=== PATIENT | female | born 1970 | race Caucasian/White ===

== ENCOUNTER 2018-07-31 02:05 | Emergency (ER) | payer MEDICAID ==
[~2018-07-31] VITALS: Ht 167.6 cm; Wt 81.6 kg
[~2018-07-31 02:05] MED LIST: LISI2.5T12 PO
[2018-07-31 02:10] VITALS: BP 174/107
--- NOTE | 2018-07-31 02:10 | NUR ---
48/F CAME IN W C/O HEADACHE AND PALIPITATIONS STARTED TODAY. PT REPORTS SHE HAS NOT BEEN TAKING LISINOPRIL X 8 DAYS D/T NO REFILLS. HEART SOUNDS REGULAR. 91HR ON BEDSIDE MONITOR, NO ECTOPY. PMH: HTN
--- NOTE | 2018-07-31 02:10 | NUR ---
TO BED # 12 AMBULATORY, REPORT GIVEN TO LUCY CHEN
[2018-07-31] MEDS ORDERED: LORazepam 0.5 MG TAB PO ONE (02:50)
--- NOTE | 2018-07-31 03:23 | NUR ---
ORDER PER AMBIKA GREGORY TO GIVE LISINOPRIL 40MG PO, MED GIVEN TO PT. PT DONNELL WELL
[2018-07-31 03:24] LABS: BARBITURATE, URINE NEG. ng/ml (NEG <=200); BENZODIAZEPINE, URINE NEG. ng/mL (NEG <=200); CANNABINOID, URINE NEG. ng/mL (NEG <=50); COCAINE, URINE NEG. ng/mL (NEG <=300); OPIATE, URINE NEG. ng/mL (NEG <=2000); PHENCYCLIDINE SCREEN,URINE NEG. ng/mL (NEG <=25)
[2018-07-31] MEDS ORDERED: LISINOPRIL 10 MG TAB ONE ×2 (03:26→03:28)
[2018-07-31 03:34] LABS: APPEARANCE,URINE CLEAR (CLEAR); BILIRUBIN,URINE NEGATIVE (NEGATIVE); BLOOD, URINE NEGATIVE (NEGATIVE); COLOR,URINE YELLOW (YELLOW); LEUKOCYTE ESTERASE ,URINE NEGATIVE (NEGATIVE); NITRITE, URINE NEGATIVE (NEGATIVE); PH,URINE 6.5 (5.0-9.0); UGLUCOSE NEGATIVE (NEGATIVE)
[2018-07-31 03:45] LABS: BASOPHILS # (AUTO) 0.1 K/uL (0.00-0.22); BASOPHILS % (AUTO) 0.6 % (0.0-2.0); EOSINOPHILS # (AUTO) 0.2 K/uL (0-0.4); EOSINOPHILS % (AUTO) 2.5 % (0.0-4.0); HEMATOCRIT 34.8 % (36-48); HEMOGLOBIN 11.4 g/dL (12.0-16.0); LYMPHOCYTES # (AUTO) 4.2 K/uL (2.5-16.5); LYMPHOCYTES % (AUTO) 44.1 % (20.5-51.1); MEAN CORPUSCULAR HEMOGLOBIN 26 pg (27-31); MEAN CORPUSCULAR HGB CONC 33 g/dL (33-37); MEAN CORPUSCULAR VOLUME 80.4 fL (80-94); MONOCYTES # (AUTO) 0.9 K/uL (0.8-1.0); MONOCYTES % (AUTO) 9.2 % (1.7-9.3); NEUTROPHILS # (AUTO) 4.1 K/uL (1.8-7.7); NEUTROPHILS % (AUTO) 43.6 % (42.2-75.2); PLATELET COUNT (AUTO) 264 K/uL (140-450); RED BLOOD CELL COUNT(AUTO) 4.33 MIL/uL (4.20-5.40); WHITE BLOOD COUNT (AUTO) 9.5 K/uL (4.8-10.8)
[2018-07-31 04:07] LABS: ANION GAP 8.1 (8-16); CARBON DIOXIDE 27.6 mmol/L (21-32); CREATININE 0.7 mg/dL (0.6-1.3); POTASSIUM 3.7 mmol/L (3.5-5.1); TOTAL BILIRUBIN 0.1 mg/dL (0.0-1.0)
[2018-07-31 05:04] VITALS: BP 122/68
--- NOTE | 2018-07-31 05:04 | NUR ---
Patient discharged with v/s stable. Written and verbal after care instructions given and explained. Patient alert, oriented and verbalized understanding of instructions. Ambulatory with steady gait. All questions addressed prior to discharge. ID band removed. Patient advised to follow up with PMD. Rx of ATIVAN, LISINOPRIL given. Patient educated on indication of medication including possible reaction and side effects. Opportunity to ask questions provided and answered.
[2018-07-31] MEDS ORDERED: LISINOPRIL 20 MG TAB PO ONE (09:00)
[2018-07-31] MEDS ORDERED: LISINOPRIL 20 MG TAB PO SCH (09:00)
== END 2018-07-31 05:04 | disposition home or self-care (01) ==
LOC: MED 02:05
DX: G47.00 Insomnia, unspecified (principal); I10 Essential (primary) hypertension; Z79.899 Other long term (current) drug therapy
CPT/HCPCS: 36415; 80053; 80305; 81003; 81025; 83690; 85025; 99284